=== PATIENT | female | born 1990 | race Caucasian/White ===

== ENCOUNTER 2023-10-15 22:38 | Observation (INO) ==
--- NOTE | 2023-10-15 23:16 | Emergency Department Note ---
History of Present Illness General Chief complaint: Shortness of Breath/Dyspnea Stated complaint: SOB,RAMON/TIGHTNESS OF CHEST,COUGH,VMITING Time Seen by Provider: 10/15/23 22:59 History of Present Illness This is a 33-year-old female presenting to the emergency department for evaluation of difficulty breathing. The patient has a history of asthma and has been sick for at least the last 2 or 3 days. The patient went to another ER [facility] where she was diagnosed with an asthma exacerbation and discharged home. She has seen her PCP this week as well and is currently on a Medrol Dosepak. Patient states that her symptoms are significant and she is not able to speak in full sentences because of her shortness of breath. She has never been admitted for asthma. No recent travel or OCP use. The patient rates her discomfort a 9/10. No fevers or chills. Home Medications Medication Instructions Recorded Confirmed Type azithromycin 250 mg tablet 250 mg PO UD 10/16/23 10/16/23 History benzonatate 100 mg capsule 100 mg PO TID PRN Cough 10/16/23 10/16/23 History cholecalciferol (vitamin D3) 25 1,000 unit PO DAILY 10/16/23 10/16/23 History mcg (1,000 unit) capsule methylprednisolone 4 mg tablets in 4 mg PO UD 10/16/23 10/16/23 History a dose pack Allergies Allergy/AdvReac Type Severity Reaction Status Date / Time No Known Allergies Allergy Unverified 11/12/14 00:44 Past Med/Surg History Medical History History of asthma Surgical History No significant past surgical history Social History Smoking Status: Never smoker Second Hand Exposure: No; Do You Dip or Chew Tobacco: No; Hx Substance Use: No Preferred Language: Telugu Communication Ability: Effective 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 Beliefs That Will Affect Care: None Current Living Situation: Family Other Information That Helps Us Care for You: No Feels Safe at Home: Yes Safety Concerns: Feels Safe At This Time Assistive Devices: None Review of Systems A total of 10 systems reviewed and were otherwise negative Physical Exam Vital Signs Vital Signs - 24 hr 10/16/23 03:00 10/16/23 03:00 10/16/23 03:11 Pulse Rate 112 H 123 H Pulse Rate from SpO2 Sensor 114 H Respiratory Rate 19 Blood Pressure 104/63 Blood Pressure Mean 74 Pulse Oximetry 93 10/16/23 03:30 10/16/23 03:50 10/16/23 03:50 Pulse Rate 121 H 127 H Pulse Rate from SpO2 Sensor 120 H 127 H Respiratory Rate 26 H 24 Blood Pressure 127/69 Blood Pressure Mean 98 Pulse Oximetry 94 93 VITALS: Vitals are noted on the nurse's note and reviewed by myself. Vital signs with tachycardia and hypoxia GENERAL: Well-developed, well-nourished, white female who appears ill on presentation. She is speaking in short sentences. HEAD: Normocephalic atraumatic. EARS: External ear normal. External auditory canals clear, tympanic membranes pearly almaraz without erythema or effusion bilaterally. EYES: Pupils equal round and reactive to light and accommodation. Conjunctivae without injection, sclerae without icterus. Extraocular movements intact. NOSE: Patent, turbinates without inflammation or discharge. MOUTH: Mucous membranes moist. Tonsils are not enlarged. Pharynx without erythema, blood, or exudate. Uvula midline. Airway patent. NECK: Supple without nuchal rigidity. No lymphadenopathy. No thyromegaly. Cervical spine is nontender. HEART: Tachycardic rate LUNGS: Diffuse wheezing and rhonchi with diminished breath sounds throughout ABDOMEN: Positive normal bowel sounds x 4. Soft, nontender, without masses or organomegaly. No guarding or rebound tenderness. MUSCULOSKELETAL: No muscle atrophy, erythema, or edema noted. Full range of motion in all extremities. Course Administered Medications Acetaminophen (Acetaminophen 325 Mg Tab) 650 mg PO Q4H PRN PRN Reason: Pain or Fever Stop: 11/15/23 04:15 Last Admin: 10/16/23 21:41 Dose: 650 mg Documented By: WARD Benzonatate (Benzonatate 100 Mg Capsule) 100 mg PO TID PRN PRN Reason: Cough Stop: 11/15/23 04:15 Last Admin: 10/16/23 21:41 Dose: 100 mg Documented By: WARD Doxycycline Hyclate (Doxycycline Hyclate 100 Mg Cap) 100 mg PO BID MERCEDES Stop: 10/23/23 08:59 Last Admin: 10/16/23 20:31 Dose: 100 mg Documented By: Admin: 10/16/23 08:15 Dose: 100 mg Documented By: NALLELY Enoxaparin Sodium (Enoxaparin Inj 40 Mg/0.4 Ml Syr) 40 mg SQ Q24H MERCEDES Stop: 11/15/23 08:59 Last Admin: 10/16/23 08:16 Dose: 40 mg Documented By: NALLELY Methylprednisolone 40 mg/ (Syringe) 0.64 mls @ 1.5 mls/min IV Q8H MERCEDES Stop: 11/15/23 07:59 Last Admin: 10/16/23 23:48 Dose: 1.5 mls/min Documented By: Admin: 10/16/23 15:22 Dose: 1.5 mls/min Documented By: Admin: 10/16/23 07:26 Dose: 1.5 mls/min Documented By: NALLELY Levalbuterol HCl (Levalbuterol 1.25 Mg/3 Ml Neb) 1.25 mg NEB Q4H PRN; Protocol PRN Reason: Shortness Of Breath Or Wheezing Stop: 11/15/23 04:15 Last Admin: 10/16/23 21:41 Dose: 1.25 mg Documented By: WARD Vitamin D (Cholecalciferol 25 Mcg (1000 Units) Tab) 25 mcg PO DAILY MERCEDES Stop: 11/15/23 08:59 Last Admin: 10/16/23 08:15 Dose: 25 mcg Documented By: NALLELY Discontinued Medications Albuterol (Albut/Ipratrop 3mg/0.5mg Neb 3 Ml Vial) 12 ml NEB ONE ONE; Protocol Stop: 10/15/23 23:09 Last Admin: 10/15/23 23:18 Dose: 12 ml Documented By: RIKKI Magnesium Sulfate/Dextrose (Magnesium Sulfate / D5w) 1 gm in 100 mls @ 600 mls/hr IV Q10M MERCEDES Stop: 10/15/23 23:28 Last Infusion: 10/15/23 23:55 Dose: Infused Documented By: Admin: 10/15/23 23:33 Dose: 600 mls/hr Documented By: Infusion: 10/15/23 23:33 Dose: Infused Documented By: Admin: 10/15/23 23:18 Dose: 600 mls/hr Documented By: RIKKI Acetaminophen (Ofirmev) 1,000 mg in 100 mls @ 400 mls/hr IV NOW STA Stop: 10/16/23 01:11 Last Infusion: 10/16/23 01:35 Dose: Infused Documented By: Admin: 10/16/23 01:09 Dose: 400 mls/hr Documented By: RIKKI Ioversol (Optiray 320 125ml) 115 ml IV ONCE ONE Stop: 10/16/23 00:12 Last Admin: 10/16/23 00:11 Dose: 115 ml Documented By: CATRINA Ipratropium [place] (Ipratropium [place] Neb Soln 0.02% 0.5mg/2.5ml Vial) 0.5 mg INH QIDR [facility] Stop: 11/15/23 06:59 Last Admin: 10/16/23 16:18 Dose: 0.5 mg Documented By: Admin: 10/16/23 11:56 Dose: 0.5 mg Documented By: Admin: 10/16/23 07:12 Dose: 0.5 mg Documented By: CONSTANTINE Levalbuterol HCl (Levalbuterol 1.25 Mg/3 Ml Neb) 1.25 mg NEB QIDR MERCEDES Stop: 11/15/23 06:59 Last Admin: 10/16/23 15:32 Dose: 1.25 mg Documented By: Admin: 10/16/23 15:31 Dose: 1.25 mg Documented By: Admin: 10/16/23 11:56 Dose: 1.25 mg Documented By: Admin: 10/16/23 07:12 Dose: 1.25 mg Documented By: CONSTANTINE Methylprednisolone (Methylprednisolone 125 Mg/2 Ml Vial) 125 mg IV NOW STA Stop: 10/15/23 23:09 Last Admin: 10/15/23 23:17 Dose: 125 mg Documented By: RIKKI Potassium Chloride (Potassium Chloride Crtab 20 Meq Tabcr) 40 meq PO NOW STA Stop: 10/16/23 04:27 Last Admin: 10/16/23 05:18 Dose: 40 meq Documented By: KOBI Medical Decision Making Differential Diagnosis Differential diagnosis: Etiologies such as infections, reactive airway disease, COPD, pneumonia, pleural effusion, pulmonary edema, ARDS, pneumothorax, CHF, cardiac ischemia, cardiac tamponade, dysrhythmia, anemia, pulmonary embolism, musculoskeletal, gastrointestinal process, as well as others were entertained. Laboratory Data 10/16/23 06:39 10/16/23 06:39 Lab Results 10/15/23 10/15/23 10/15/23 Range/Units 23:05 23:23 23:27 WBC 11.65 H (4.8-10.8) K/ul RBC 4.67 (4.20-5.40) M/uL Hgb 14.6 (12.0-16.0) g/dl Hct 43.5 (37.0-47.0) % MCV 93.1 (80.0-100.0) fL MCH 31.3 (25.0-34.0) pg MCHC 33.6 (32.0-36.0) g/dL RDW Std Deviation 43.3 (36.4-46.3) fL RDW Coeff of Mary Ellen 12.6 (11.5-14.5) % Plt Count 324 (130-400) K/uL MPV 10.3 (9.4-12.4) fL Immature Gran % (Auto) 0.3 % Neut % (Auto) 67.6 % Lymph % (Auto) 17.4 % Mcminn % (Auto) 4.5 % Eos % (Auto) 9.9 % Baso % (Auto) 0.3 % Neut # (Auto) 7.88 H (1.40-6.50) K/uL Lymph # (Auto) 2.03 (1.20-3.40) K/uL Mcminn # (Auto) 0.52 (0.11-0.59) K/uL Eos # (Auto) 1.15 H (0.00-0.50) K/uL Baso # (Auto) 0.04 (0.00-0.20) K/uL Immature Gran # (Auto) 0.03 (0.01-0.20) K/uL PT 11.5 (9.0-12.0) Seconds INR 1.1 (0.9-1.1) APTT 25 (21-31) Seconds PTT Ratio 0.9 VBG pH 7.32 L (7.36-7.41) VBG pCO2 54 H (38-50) mmHg VBG pO2 36 mmHg VBG HCO3 28 mmol/L VBG O2 Saturation < 60.0 % VBG Base Excess 0.7 mEq/L Sodium 141 (136-145) mmol/L Potassium 3.4 L (3.5-5.1) mmol/L Chloride 106 (98-107) mmol/L Carbon Dioxide 27 (21-32) mmol/L Anion Gap 8 (3-11) BUN 8 (6-23) mg/dl Creatinine 0.75 (0.6-1.2) mg/dl Est Cr Clr Drug Dosing 121.2 ml/min Est GFR ( Amer) 123.1 ml/min Est GFR (Non-Af Amer) 106.2 ml/min BUN/Creatinine Ratio 10.7 (10-20) Glucose 147 H (70-99(Fasting)) mg/dl Lactate 2.1 H* (0.4-2.0) mmol/L Calcium 9.3 (8.6-10.3) mg/dl Total Bilirubin 0.4 (0.2-1.0) mg/dl AST 15 (13-39) U/L ALT 15 (7-52) U/L Alkaline Phosphatase 66 (34-104) U/L Troponin I High Sens < 2.3 (0-14) pg/ml Total Protein 7.4 (6.0-8.3) gm/dl Albumin 4.5 (3.4-5.0) gm/dl Globulin 2.9 (2.5-4.0) gm/dl Albumin/Globulin Ratio 1.6 (0.9-2) Adenovirus (PCR) (NotDetected) B. pertussis DNA (PCR) (NotDetected) B.parapertussis DNA PCR (NotDetected) C. pneumoniae DNA (PCR) (NotDetected) Coronavirus OC43 (PCR) (NotDetected) Coronavirus HKU1 (PCR) (NotDetected) Coronavirus 229E (PCR) (NotDetected) SARS-CoV-2 (PCR) (NotDetected) Coronavirus NL63 (PCR) (NotDetected) Human Metapneumovir PCR (NotDetected) Influenza Type A (PCR) (NotDetected) Influenza Type B (PCR) (NotDetected) M. pneumoniae (PCR) (NotDetected) Parainfluenza 1 (PCR) (NotDetected) Parainfluenza 2 (PCR) (NotDetected) Parainfluenza 3 (PCR) (NotDetected) Parainfluenza 4 (PCR) (NotDetected) RSV (PCR) (NotDetected) Entero/Rhino (PCR) (NotDetected) 10/16/23 Range/Units 01:00 WBC (4.8-10.8) K/ul RBC (4.20-5.40) M/uL Hgb (12.0-16.0) g/dl Hct (37.0-47.0) % MCV (80.0-100.0) fL MCH (25.0-34.0) pg MCHC (32.0-36.0) g/dL RDW Std Deviation (36.4-46.3) fL RDW Coeff of Mary Ellen (11.5-14.5) % Plt Count (130-400) K/uL MPV (9.4-12.4) fL Immature Gran % (Auto) % Neut % (Auto) % Lymph % (Auto) % Mcminn % (Auto) % Eos % (Auto) % Baso % (Auto) % Neut # (Auto) (1.40-6.50) K/uL Lymph # (Auto) (1.20-3.40) K/uL Mcminn # (Auto) (0.11-0.59) K/uL Eos # (Auto) (0.00-0.50) K/uL Baso # (Auto) (0.00-0.20) K/uL Immature Gran # (Auto) (0.01-0.20) K/uL PT (9.0-12.0) Seconds INR (0.9-1.1) APTT (21-31) Seconds PTT Ratio VBG pH (7.36-7.41) VBG pCO2 (38-50) mmHg VBG pO2 mmHg VBG HCO3 mmol/L VBG O2 Saturation % VBG Base Excess mEq/L Sodium (136-145) mmol/L Potassium (3.5-5.1) mmol/L Chloride (98-107) mmol/L Carbon Dioxide (21-32) mmol/L Anion Gap (3-11) BUN (6-23) mg/dl Creatinine (0.6-1.2) mg/dl Est Cr Clr Drug Dosing ml/min Est GFR ( Amer) ml/min Est GFR (Non-Af Amer) ml/min BUN/Creatinine Ratio (10-20) Glucose (70-99(Fasting)) mg/dl Lactate (0.4-2.0) mmol/L Calcium (8.6-10.3) mg/dl Total Bilirubin (0.2-1.0) mg/dl AST (13-39) U/L ALT (7-52) U/L Alkaline Phosphatase (34-104) U/L Troponin I High Sens (0-14) pg/ml Total Protein (6.0-8.3) gm/dl Albumin (3.4-5.0) gm/dl Globulin (2.5-4.0) gm/dl Albumin/Globulin Ratio (0.9-2) Adenovirus (PCR) Not Detected (NotDetected) B. pertussis DNA (PCR) Not Detected (NotDetected) B.parapertussis DNA PCR Not Detected (NotDetected) C. pneumoniae DNA (PCR) Not Detected (NotDetected) Coronavirus OC43 (PCR) Not Detected (NotDetected) Coronavirus HKU1 (PCR) Not Detected (NotDetected) Coronavirus 229E (PCR) Not Detected (NotDetected) SARS-CoV-2 (PCR) Not Detected (NotDetected) Coronavirus NL63 (PCR) Not Detected (NotDetected) Human Metapneumovir PCR Not Detected (NotDetected) Influenza Type A (PCR) Not Detected (NotDetected) Influenza Type B (PCR) Not Detected (NotDetected) M. pneumoniae (PCR) Not Detected (NotDetected) Parainfluenza 1 (PCR) Not Detected (NotDetected) Parainfluenza 2 (PCR) Not Detected (NotDetected) Parainfluenza 3 (PCR) Not Detected (NotDetected) Parainfluenza 4 (PCR) Not Detected (NotDetected) RSV (PCR) Not Detected (NotDetected) Entero/Rhino (PCR) Not Detected (NotDetected) Imaging Data Radiologist's Impression: Chest CTA 10/15/23 23:08 Exam(s): CTA CHEST IV Amt: 115 cc's optiray 320 EXAM: CT Angiography Chest With Intravenous Contrast CLINICAL HISTORY: Reason for exam: SOB, tachy. TECHNIQUE: Axial computed tomographic angiography images of the chest with intravenous contrast. CTDI is 15.27 mGy and DLP is 500.02 mGy-cm. Automated exposure control was utilized for the study. A dose lowering technique was utilized adhering to the principles of ALARA. MIP reconstructed images were created and reviewed. COMPARISON: No relevant prior studies available. FINDINGS: Pulmonary arteries: Unremarkable. No pulmonary embolism. Aorta: No acute findings. No thoracic aortic aneurysm. Lungs: Unremarkable. No mass. No consolidation. Pleural space: Unremarkable. No significant effusion. No pneumothorax. Heart: Unremarkable. No cardiomegaly. No significant pericardial effusion. No evidence of RV dysfunction. Bones/joints: No acute fracture. No dislocation. Soft tissues: Unremarkable. Lymph nodes: Unremarkable. No enlarged lymph nodes. IMPRESSION: Normal chest CTA. No pulmonary embolism. Electronically signed by: Michael Moyer MD 10/16/23 00:56 AM [facility] Narrative Physical exam and history were performed. Nursing notes, EMR, and Medication List were personally reviewed. No social concerns were identified as barriers to patients care. Patient appears to have shortness of breath symptoms bring her to the ER. Patient was immediately seen on arrival to the ER as she is hypoxic, tachycardic, and tachypneic. She is answering questions in short sentences and appears in some respiratory distress. IV access was established x 2. She was hydrated with normal saline and given IV magnesium and IV Solu-Medrol. Hour- long DuoNeb was performed. Patient's blood work is as above and was reviewed. She does not have a significantly elevated white blood cell count, gross anemia, bandemia, or significant electrolyte imbalance. She is acidotic and retaining CO2 on VBG. Lactic initially is 2.1, and repeat was 2.0. Blood cultures are pending. transaminases are not diagnostic. She is not . Bio fire is negative. CT scan of the chest was ultimately performed and reviewed by myself and radiology showing no acute process. Patient is doing somewhat better after the hour-long DuoNeb and steroids. She continues to have some persistent tachycardia, and her O2 saturation is improved on 2 L. I did discuss the case with my attending, as well as with the on-call hospitalist team. The patient does not appear well for discharge home and escalation of care is felt to be necessary. Please see the hospitalist team dictation for further patient course, plan, and disposition. The chart was completed utilizing [employer] Speech Voice Recognition Software. Grammatical errors, random word insertions, pronoun errors, and incomplete sentences are an occasional consequence of this system due to software limitations, ambient noise, and hardware issues. Any formal questions or concerns about the content, text, or information contained within the body of this dictation should be directly addressed to the provider for clarification. . Impression & Plan Asthma exacerbation, Acute dyspnea Discharge Plan Visit Data Chief Complaint: Shortness of Breath/Dyspnea Stated Complaint: SOB,RAMON/TIGHTNESS OF CHEST,COUGH,VMITING ED Provider: Danielle Alegria ED Midlevel Provider: Jose Smyth Discharge Problem: Asthma exacerbation, Acute dyspnea Patient Disposition: Admitted As Inpatient Discharge Instructions Interventions: ED Discharge Assessment Last Done: 10/16/23 04:16
[2023-10-15] MEDS: methylPREDNISolone 125 MG/2 ML VIAL IV STA (23:17)
[2023-10-15] MEDS: ALBUT/IPRATROP 3MG/0.5MG NEB 3 ML VIAL NEB ONE (23:18)
[2023-10-15] MEDS: MAGNESIUM SULFATE / D5W 1 GM/100 ML BAG IV SCH (23:18)
[2023-10-15 23:28] LABS: Basophils # (auto) 0.04 K/uL (0.00-0.20); Basophils % (auto) 0.3 %; Eosinophils # (auto) 1.15 K/uL (0.00-0.50); Eosinophils % (auto) 9.9 %; Hematocrit (blood only) 43.5 % (37.0-47.0); Hemoglobin 14.6 g/dl (12.0-16.0); Immature Granulocytes # (auto) 0.03 K/uL (0.01-0.20); Immature Granulocytes % (auto) 0.3 %; Lymphocytes # (auto) 2.03 K/uL (1.20-3.40); Lymphocytes % (auto) 17.4 %; Mean Corpuscular Hemoglobin 31.3 pg (25.0-34.0); Mean Corpuscular Hgb Conc 33.6 g/dL (32.0-36.0); Mean Corpuscular Volume 93.1 fL (80.0-100.0); Mean Platelet Volume 10.3 fL (9.4-12.4); Monocytes # (auto) 0.52 K/uL (0.11-0.59); Monocytes % (auto) 4.5 %; Neutrophils # (auto) 7.88 K/uL (1.40-6.50); Neutrophils % (auto) 67.6 %; Platelet Count 324 K/uL (130-400); RDW Coefficient of Variation 12.6 % (11.5-14.5); RDW Standard Deviation 43.3 fL (36.4-46.3); Red Blood Count 4.67 M/uL (4.20-5.40); White Blood Count 11.65 K/ul (4.8-10.8)
[2023-10-15 23:33] LABS: Base Excess VBG 0.7 mEq/L; HCO3 VBG 28 mmol/L; Oxygen Saturation VBG < 60.0 %; PCO2 VBG 54 mmHg (38-50); PO2 VBG 36 mmHg; pH VBG 7.32 (7.36-7.41)
[2023-10-15 23:42] LABS: Alanine Aminotransferase 15 U/L (7-52); Albumin Globulin Ratio 1.6 (0.9-2); Albumin Level 4.5 gm/dl (3.4-5.0); Alkaline Phosphatase 66 U/L (34-104); Anion Gap 8 (3-11); Aspartate Aminotransferase 15 U/L (13-39); BUN Creatinine Ratio 10.7 (10-20); Bilirubin,Total 0.4 mg/dl (0.2-1.0); Blood Urea Nitrogen 8 mg/dl (6-23); Calcium 9.3 mg/dl (8.6-10.3); Carbon Dioxide 27 mmol/L (21-32); Chloride 106 mmol/L (98-107); Creatinine Clr Calc Pharmacy 121.2 ml/min; Est GFR (African American) 123.1 ml/min; Est GFR (Non-African American) 106.2 ml/min; Globulin 2.9 gm/dl (2.5-4.0); Glucose 147 mg/dl (70-99(Fasting)); Potassium 3.4 mmol/L (3.5-5.1); Sodium 141 mmol/L (136-145); Total Protein 7.4 gm/dl (6.0-8.3)
[2023-10-15 23:51] LABS: Troponin I High Sensitivity < 2.3 pg/ml (0-14)
[2023-10-16 00:07] LABS: INR 1.1 (0.9-1.1); Partial Thromboplastin Ratio 0.9; Partial Thromboplastin Time 25 Seconds (21-31); Prothrombin Time 11.5 Seconds (9.0-12.0)
[2023-10-16] MEDS: OPTIRAY 320 125ml IV ONE (00:11)
--- NOTE | 2023-10-16 00:57 | CT Scan Report ---
Exam(s): CTA CHEST IV Amt: 115 cc's optiray 320 EXAM: CT Angiography Chest With Intravenous Contrast CLINICAL HISTORY: Reason for exam: SOB, tachy. TECHNIQUE: Axial computed tomographic angiography images of the chest with intravenous contrast. CTDI is 15.27 mGy and DLP is 500.02 mGy-cm. Automated exposure control was utilized for the study. A dose lowering technique was utilized adhering to the principles of ALARA. MIP reconstructed images were created and reviewed. COMPARISON: No relevant prior studies available. FINDINGS: Pulmonary arteries: Unremarkable. No pulmonary embolism. Aorta: No acute findings. No thoracic aortic aneurysm. Lungs: Unremarkable. No mass. No consolidation. Pleural space: Unremarkable. No significant effusion. No pneumothorax. Heart: Unremarkable. No cardiomegaly. No significant pericardial effusion. No evidence of RV dysfunction. Bones/joints: No acute fracture. No dislocation. Soft tissues: Unremarkable. Lymph nodes: Unremarkable. No enlarged lymph nodes. IMPRESSION: Normal chest CTA. No pulmonary embolism. Electronically signed by: Michael Moyer MD 10/16/23 00:56 AM
[2023-10-16] MEDS: ACETAMINOPHEN 1,000 MG/100 ML VIAL IV STA (01:09)
[2023-10-16 02:11] LABS: Adenovirus PCR Not Detected (NotDetected); Bordetella parapertussis PCR Not Detected (NotDetected); Bordetella pertussis PCR Not Detected (NotDetected); Chlamydia pneumoniae PCR Not Detected (NotDetected); Coronavirus 229E PCR Not Detected (NotDetected); Coronavirus CoV-2 (COVID19)PCR Not Detected (NotDetected); Coronavirus HKU1 PCR Not Detected (NotDetected); Coronavirus NL63 PCR Not Detected (NotDetected); Coronavirus OC43PCR Not Detected (NotDetected); Human Metapneumovirus PCR Not Detected (NotDetected); Influenza A PCR Not Detected (NotDetected); Influenza B PCR Not Detected (NotDetected); Mycoplasma pneumoniae PCR Not Detected (NotDetected); Parainfluenza Virus 1 PCR Not Detected (NotDetected); Parainfluenza Virus 2 PCR Not Detected (NotDetected); Parainfluenza Virus 3 PCR Not Detected (NotDetected); Parainfluenza Virus 4 PCR Not Detected (NotDetected); Respiratory Syncytial VirusPCR Not Detected (NotDetected); Rhinovirus/Enterovirus PCR Not Detected (NotDetected)
--- NOTE | 2023-10-16 04:06 | History & Physical Report ---
Date of Service October 16, 2023 Assessment & Plan (1) Asthma exacerbation: Plan: 33-year-old female with past med history significant for asthma comes with shortness of breath and found to be in asthma exacerbation and failed outpatient treatment. Patient states since last Wednesday she is feeling short of breath and coughing which is getting progressively worsened. She she was seen in acute care on Wednesday and was prescribed azithromycin. 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 On Wednesday she was not feeling well and she was given a steroid shot and prescribed Medrol Dosepak in the ENT office and was sent to [facility].Patient states from [facility] she was discharged back home on inhalers. On the way home she was nauseous and vomited. And she started taking Medrol Dosepak on morning. She seemed to feel better but by the evening shortness of breath and cough got worse and was progressive getting worse and not improving so she came to [facility]. When she came in she was tachypneic, tachycardia and was saturating 87% room air. After 1 hour of neb treatments and oxygen supplementation she seems doing okay. She states to having some chest tightness. Bringing some phlegm while coughing. Having some headaches. No blurred vision. No sore throat. Appetite is okay. No abdominal pain. Normal bowel and bladder movements. Currently resting comfortably and speaking in full sentences. Asthma exacerbation Failed outpatient treatment Respiratory bio fire negative CTA chest unremarkable Will continue IV Solu-Medrol 40 mg 3 times daily, nebs [id number] and as needed Will hold azithromycin as QTc is prolonged Will place on p.o. Doxy Will monitor for response Chest tightness Mostly from above Will follow serial enzymes Prolonged QTc Avoid QTc prolonging drugs Follow repeat EKG DVT prophylaxis Lovenox Disposition Med/tele Full code History of Present Illness Chief Complaint: Shortness of breath Primary Care Provider: Giovanna Hyatt PA-C 33-year-old female with past med history significant for asthma comes with shortness of breath and found to be in asthma exacerbation and failed outpatient treatment. Patient states since last Wednesday she is feeling short of breath and coughing which is getting progressively worsened. She she was seen in acute care on Wednesday and was prescribed azithromycin. 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 On Wednesday she was not feeling well and she was given a steroid shot and prescribed Medrol Dosepak in the ENT office and was sent to [facility].Patient states from ER she was discharged back home on inhalers. On the way home she was nauseous and vomited. And she started taking Medrol Dosepak on morning. She seemed to feel better but by the evening shortness of breath and cough got worse and was progressive getting worse and not improving so she came to [facility]. When she came in she was tachypneic, tachycardia and was saturating 87% room air. After 1 hour of neb treatments and oxygen supplementation she seems doing okay. She states to having some chest tightness. Bringing some phlegm while coughing. Having some headaches. No blurred vision. No sore throat. Appetite is okay. No abdominal pain. Normal bowel and bladder movements. Currently resting comfortably and speaking in full sentences. Past medical history as mentioned above. Past surgical history. None as per patient Social history. She vapes daily. Alcohol occasional. No drug use. Family history. . Maternal grandfather had lung cancer. Paternal grandmother had cardiac stents,maternal grandmother had hypertension Allergies Allergy/AdvReac Type Severity Reaction Status Date / Time No Known Allergies Allergy Unverified 11/12/14 00:44 Home Medications Medication Instructions Recorded Confirmed Type azithromycin 250 mg tablet 250 mg PO UD 10/16/23 10/16/23 History benzonatate 100 mg capsule 100 mg PO TID PRN Cough 10/16/23 10/16/23 History cholecalciferol (vitamin D3) 25 1,000 unit PO DAILY 10/16/23 10/16/23 History mcg (1,000 unit) capsule methylprednisolone 4 mg tablets in 4 mg PO UD 10/16/23 10/16/23 History a dose pack Past Med/Surg History Medical History History of asthma Surgical History No significant past surgical history Social History Smoking Status: Never smoker Preferred Language: Italian Feels Safe at Home: Yes Review of Systems Review of Systems: All systems reviewed & are unremarkable except as noted in HPI & below Physical Exam Physical Exam: General- Not in distress. Head- atraumatic Eyes- PERRL. ENT- oropharynx clear Neck- supple, no JVD. Lungs- clear to auscultation mild b/l wheezing, no crackles. Heart- regular rhythm;Tachycardia, no murmur, no gallop. Abdomen- normal bowel sounds, soft, nontender, no distension. Extremities- no pretibial edema, no erythema seen. Neuro- alert, oriented PERRL, no facial palsy; no dysarthria; Results & Data Results & Data Vital Signs (Past 12 Hours) Vital Signs Temp Pulse Resp BP Pulse Ox O2 Del Method O2 Flow Rate 10/16/23 03:11 123 H 10/16/23 03:00 112 H 19 93 10/16/23 03:00 104/63 10/16/23 02:30 125 H 34 H 94 10/16/23 02:00 101/57 L 10/16/23 02:00 130 H 21 94 10/16/23 01:30 131 H 22 101/57 L 94 10/16/23 01:00 111/69 10/16/23 01:00 142 H 18 93 10/16/23 00:55 108/62 10/16/23 00:55 139 H 18 95 10/16/23 00:39 94 Nasal Cannula 2 10/16/23 00:30 96 10/16/23 00:12 93 10/15/23 23:30 133 H 26 H 93 10/15/23 23:00 125 H 33 H 92 10/15/23 22:55 113 H 21 94 10/15/23 22:55 105/73 10/15/23 22:55 124 H 10/15/23 22:45 36.8 C 130 H 26 H 150/97 H 87 L Room Air Diagnostic Findings Laboratory Results WBC 11.65 K/ul (4.8-10.8) H 10/15/23 23:05 RBC 4.67 M/uL (4.20-5.40) 10/15/23 23:05 Hgb 14.6 g/dl (12.0-16.0) 10/15/23 23:05 Hct 43.5 % (37.0-47.0) 10/15/23 23:05 MCV 93.1 fL (80.0-100.0) 10/15/23 23: MCH 31.3 pg (25.0-34.0) 10/15/23 23:05 MCHC 33.6 g/dL (32.0-36.0) 10/15/23 23: RDW Std Deviation 43.3 fL (36.4-46.3) 10/15/23 23: RDW Coeff of Mary Ellen 12.6 % (11.5-14.5) 10/15/23 23: Plt Count 324 K/uL (130-400) 10/15/23 23:05 MPV 10.3 fL (9.4-12.4) 10/15/23 23: Immature Gran % (Auto) 0.3 % 10/15/23 23: Neut % (Auto) 67.6 % 10/15/23 23: Lymph % (Auto) 17.4 % 10/15/23 23: [place] % (Auto) 4.5 % 10/15/23: Eos % (Auto) 9.9 % 10/15/23 23:05 Baso % (Auto) 0.3 % 10/15/23 23:05 Neut # (Auto) 7.88 K/uL (1.40-6.50) H 10/15/23 23:05 Lymph # (Auto) 2.03 K/uL (1.20-3.40) 10/15/23 23:05 [place] # (Auto) 0.52 K/uL (0.11-0.59) 10/15/23 23:05 Eos # (Auto) 1.15 K/uL (0.00-0.50) H 10/15/23 23:05 Baso # (Auto) 0.04 K/uL (0.00-0.20) 10/15/23 23:05 Immature Gran # (Auto) 0.03 K/uL (0.01-0.20) 10/15/23 23: PT 11.5 Seconds (9.0-12.0) 10/15/23: INR 1.1 (0.9-1.1) 10/15/23: APTT 25 Seconds (21-31) 10/15/23: PTT Ratio 0.9 03/15/24 23:27 VBG pH 7.32 (7.36-7.41) L 10/15/23 23:23 VBG pCO2 54 mmHg (38-50) H 10/15/23 23:23 VBG pO2 36 mmHg 10/15/23 23:23 VBG HCO3 28 mmol/L 10/15/23 23:23 VBG O2 Saturation < 60.0 % 10/15/23 23:23 VBG Base Excess 0.7 mEq/L 10/15/23 23:23 Sodium 141 mmol/L (136-145) 10/15/23 23:05 Potassium 3.4 mmol/L (3.5-5.1) L 10/15/23 23:05 Chloride 106 mmol/L (98-107) 10/15/23 23:05 Carbon Dioxide 27 mmol/L (21-32) 10/15/23 23:05 Anion Gap 8 (3-11) 10/15/23 23:05 BUN 8 mg/dl (6-23) 10/15/23 23:05 Creatinine 0.75 mg/dl (0.6-1.2) 10/15/23 23:05 Est Cr Clr Drug Dosing 121.2 ml/min 10/15/23 23:05 Est GFR ( Amer) 123.1 ml/min 10/15/23 23:05 Est GFR (Non-Af Amer) 106.2 ml/min 10/15/23 23:05 BUN/Creatinine Ratio 10.7 (10-20) 10/15/23 23:05 Glucose 147 mg/dl (70-99(Fasting)) H 10/15/23 23:05 Lactate 2.0 mmol/L (0.4-2.0) 10/16/23 Unknown Calcium 9.3 mg/dl (8.6-10.3) 10/15/23 23:05 Total Bilirubin 0.4 mg/dl (0.2-1.0) 10/15/23 23:05 AST 15 U/L (13-39) 10/15/23 23:05 ALT 15 U/L (7-52) 10/15/23 23:05 Alkaline Phosphatase 66 U/L (34-104) 10/15/23 23:05 Troponin I High Sens < 2.3 pg/ml (0-14) 10/15/23 23:05 Total Protein 7.4 gm/dl (6.0-8.3) 10/15/23 23:05 Albumin 4.5 gm/dl (3.4-5.0) 10/15/23 23:05 Globulin 2.9 gm/dl (2.5-4.0) 10/15/23 23:05 Albumin/Globulin Ratio 1.6 (0.9-2) 10/15/23 23:05 Adenovirus (PCR) Not Detected (NotDetected) 10/16/23 01:00 B. pertussis DNA (PCR) Not Detected (NotDetected) 10/16/23 01:00 B.parapertussis DNA PCR Not Detected (NotDetected) 10/16/23 01:00 C. pneumoniae DNA (PCR) Not Detected (NotDetected) 10/16/23 01:00 Coronavirus OC43 (PCR) Not Detected (NotDetected) 10/16/23 01:00 Coronavirus HKU1 (PCR) Not Detected (NotDetected) 10/16/23 01:00 Coronavirus 229E (PCR) Not Detected (NotDetected) 10/16/23 01:00 SARS-CoV-2 (PCR) Not Detected (NotDetected) 10/16/23 01:00 Coronavirus NL63 (PCR) Not Detected (NotDetected) 10/16/23 01:00 Human Metapneumovir PCR Not Detected (NotDetected) 10/16/23 01:00 Influenza Type A (PCR) Not Detected (NotDetected) 10/16/23 01:00 Influenza Type B (PCR) Not Detected (NotDetected) 10/16/23 01:00 M. pneumoniae (PCR) Not Detected (NotDetected) 10/16/23 01:00 Parainfluenza 1 (PCR) Not Detected (NotDetected) 10/16/23 01:00 Parainfluenza 2 (PCR) Not Detected (NotDetected) 10/16/23 01:00 Parainfluenza 3 (PCR) Not Detected (NotDetected) 10/16/23 01:00 Parainfluenza 4 (PCR) Not Detected (NotDetected) 10/16/23 01:00 RSV (PCR) Not Detected (NotDetected) 10/16/23 01:00 Entero/Rhino (PCR) Not Detected (NotDetected) 10/16/23 01:00 Impressions Chest CTA 10/15/23 23:08 Exam(s): CTA CHEST IV Amt: 115 cc's optiray 320 EXAM: CT Angiography Chest With Intravenous Contrast CLINICAL HISTORY: Reason for exam: SOB, tachy. TECHNIQUE: Axial computed tomographic angiography images of the chest with intravenous contrast. CTDI is 15.27 mGy and DLP is 500.02 mGy-cm. Automated exposure control was utilized for the study. A dose lowering technique was utilized adhering to the principles of ALARA. MIP reconstructed images were created and reviewed. COMPARISON: No relevant prior studies available. FINDINGS: Pulmonary arteries: Unremarkable. No pulmonary embolism. Aorta: No acute findings. No thoracic aortic aneurysm. Lungs: Unremarkable. No mass. No consolidation. Pleural space: Unremarkable. No significant effusion. No pneumothorax. Heart: Unremarkable. No cardiomegaly. No significant pericardial effusion. No evidence of RV dysfunction. Bones/joints: No acute fracture. No dislocation. Soft tissues: Unremarkable. Lymph nodes: Unremarkable. No enlarged lymph nodes. IMPRESSION: Normal chest CTA. No pulmonary embolism. Electronically signed by: Michael Moyer MD 10/16/23 00:56 AM ECG Additional Comments: ECG. Sinus tachycardia rate of 138. Nonspecific ST and T wave abnormality. T wave inversion lateral leads. QTc 560 Code Status & VTE Plan VTE Prophylaxis Plan VTE Prophylaxis will be ordered: Yes
[2023-10-16] MEDS ORDERED: NITROGLYCERIN SL 0.4 MG/TAB TAB SL PRN (04:16)
[2023-10-16] MEDS ORDERED: AZITHROMYCIN 250 MG TAB PO SCH (04:16)
[2023-10-16] MEDS ORDERED: POLYETHYLENE (MIRALAX) 17 GM PACK PO PRN (04:16)
[2023-10-16] MEDS: POTASSIUM CHLORIDE CRTAB 20 MEQ TABCR PO STA (05:18)
[2023-10-16 07:05] LABS: Hemoglobin 13.7 g/dl (12.0-16.0); Mean Corpuscular Hemoglobin 31.8 pg (25.0-34.0); Mean Corpuscular Hgb Conc 35.1 g/dL (32.0-36.0); Mean Corpuscular Volume 90.5 fL (80.0-100.0); Mean Platelet Volume 10.4 fL (9.4-12.4); Platelet Count 287 K/uL (130-400); RDW Coefficient of Variation 12.4 % (11.5-14.5); RDW Standard Deviation 41.1 fL (36.4-46.3); Red Blood Count 4.31 M/uL (4.20-5.40); White Blood Count 7.24 K/ul (4.8-10.8)
[2023-10-16] MEDS: LEVALBUTEROL 1.25 MG/3 ML NEB NEB SCH (07:12)
[2023-10-16] MEDS: IPRATROPIUM BROMIDE NEB SOLN 0.02% 0.5MG/2.5ML VIAL INH SCH (07:12)
[2023-10-16 07:24] LABS: Anion Gap 7 (3-11); BUN Creatinine Ratio 11.4 (10-20); Blood Urea Nitrogen 8 mg/dl (6-23); Carbon Dioxide 25 mmol/L (21-32); Chloride 105 mmol/L (98-107); Creatinine Clr Calc Pharmacy 129.9 ml/min; Est GFR (African American) 133.8 ml/min; Est GFR (Non-African American) 115.5 ml/min; Glucose 175 mg/dl (70-99(Fasting)); Magnesium 2.2 mg/dl (1.7-2.4); Potassium 4.3 mmol/L (3.5-5.1); Sodium 137 mmol/L (136-145)
[2023-10-16] MEDS: methylPREDNISolone 40 MG in SYRINGE 0 ML IV SCH (07:26)
[2023-10-16 07:35] LABS: Troponin I High Sensitivity < 2.3 pg/ml (0-14)
[2023-10-16 07:53] LABS: Basophils # (auto) 0.02 K/uL (0.00-0.20); Basophils % (auto) 0.3 %; Eosinophils # (auto) 0.03 K/uL (0.00-0.50); Eosinophils % (auto) 0.4 %; Immature Granulocytes # (auto) 0.02 K/uL (0.01-0.20); Immature Granulocytes % (auto) 0.3 %; Lymphocytes # (auto) 0.53 K/uL (1.20-3.40); Lymphocytes % (auto) 7.3 %; Monocytes # (auto) 0.07 K/uL (0.11-0.59); Neutrophils # (auto) 6.57 K/uL (1.40-6.50); Neutrophils % (auto) 90.7 %; RBC Morphology Unremarkable
[2023-10-16] MEDS: CHOLECALCIFEROL 25 MCG (1000 UNITS) TAB PO SCH (08:15)
[2023-10-16] MEDS: DOXYCYCLINE HYCLATE 100 MG CAP PO SCH (08:15)
[2023-10-16] MEDS: ENOXAPARIN INJ 40 MG/0.4 ML SYR SQ SCH (08:16)
[2023-10-16] MEDS ORDERED: XOPENEX/ATROVENT 1.25mg/0.5MG NEB COMBO NEB SCH (09:00)
[2023-10-16 12:54] LABS: Pregnancy Test, Urine Negative (Negative)
--- NOTE | 2023-10-16 13:33 | Electrocardiogram Report ---
Test Reason : Blood Pressure : / mmHG Vent. Rate : 138 BPM Atrial Rate : 138 BPM P-R Int : 112 ms QRS Dur : 082 ms QT Int : 370 ms P-R-T Axes : 066 077 054 degrees QTc Int : 560 ms Sinus tachycardia Nonspecific ST and T wave abnormality Abnormal ECG When compared with ECG of 09-FEB-2016 19:45, Vent. rate has increased BY 47 BPM T wave inversion now evident in Lateral leads Confirmed by Mauro Singh ([id number]) on 10/16/2023 1:32:37 PM Referred By: REFERRED SELF Confirmed By:Mauro Singh
[2023-10-16] MEDS: BENZONATATE 100 MG CAPSULE PO PRN (21:41)
[2023-10-16] MEDS: ACETAMINOPHEN 325 MG TAB PO PRN (21:41)
[2023-10-16] MEDS: LEVALBUTEROL 1.25 MG/3 ML NEB NEB PRN (21:41)
[2023-10-17 07:08] LABS: Hematocrit (blood only) 40.7 % (37.0-47.0); Mean Corpuscular Hemoglobin 31.5 pg (25.0-34.0); Mean Corpuscular Hgb Conc 34.4 g/dL (32.0-36.0); Mean Corpuscular Volume 91.7 fL (80.0-100.0); Mean Platelet Volume 10.5 fL (9.4-12.4); Platelet Count 330 K/uL (130-400); RDW Coefficient of Variation 12.3 % (11.5-14.5); RDW Standard Deviation 41.2 fL (36.4-46.3); Red Blood Count 4.44 M/uL (4.20-5.40); White Blood Count 9.46 K/ul (4.8-10.8)
[2023-10-17 07:27] LABS: Calcium 9.2 mg/dl (8.6-10.3); Creatinine Clr Calc Pharmacy 149.6 ml/min; Est GFR (Non-African American) 120.8 ml/min; Phosphorus 3.8 mg/dl (2.5-4.9); Potassium 4.3 mmol/L (3.5-5.1)
--- NOTE | 2023-10-17 09:37 | Hospitalist Progress Note ---
Date of Service October 17, 2023 Assessment & Plan (1) Asthma exacerbation: Plan: 33- yo F with hx of asthma comes with shortness of breath and found to be in asthma exacerbation and failed outpatient treatment. Patient states since last Wednesday she is feeling short of breath and coughing which is getting progressively worsened. She she was seen in acute care on Wednesday and was prescribed azithromycin. 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 On Wednesday she was not feeling well and she was given a steroid shot and prescribed Medrol Dosepak in the ENT office and was sent to [facility].Patient states from [facility] she was discharged back home on inhalers. On the way home she was nauseous and vomited. And she started taking Medrol Dosepak on morning. She seemed to feel better but by the evening shortness of breath and cough got worse and was progressive getting worse and not improving so she came to [facility]. When she came in she was tachypneic, tachycardic and was saturating 87% room air. After 1 hour of neb treatments and oxygen supplementation she seems doing okay. She states to having some chest tightness. Bringing some phlegm while coughing. Having some headaches. No blurred vision. No sore throat. Appetite is okay. No abdominal pain. Normal bowel and bladder movements. Currently resting comfortably and speaking in full sentences. Asthma exacerbation Failed outpatient treatment Respiratory bio fire negative CTA chest unremarkable continued IV Solu-Medrol 40 mg 3 times daily, nebs while inpt stopped azithromycin as QTc is prolonged started on p.o. Doxy Will monitor for response Chest tightness Mostly from above serial enzymes negative - resolved w/ breathing treatment Prolonged QTc Avoid QTc prolonging drugs Follow repeat EKG DVT prophylaxis Lovenox Disposition Med/tele - plan to DC home if she cont. to feel today Full code Admission and Anticipated Discharge Date Admission Date: October 16, 2023 Subjective Pt seen in follow up of asthma exacerbation Currently sitting up in bed in [facility], she is breathing comfortably on RA at this moment but says she had chest tightness early AM and last night resolved with breathing treatment No fever, chills, no abd. pain, nausea vomiting, no palpitations, no dizziness She would like to be discharged home Review of Systems Review of Systems: All systems reviewed & are unremarkable except as noted in Subjective Physical Exam Physical Exam: General- WD/WN young F in NAD Head- atraumatic Eyes- PERRL. Neck- supple, no JVD. Lungs- + b/l wheezing, no crackles. Heart- rrr, no murmur, no gallop. Abdomen- normal bowel sounds, soft, nontender, no distension. Extremities- no pretibial edema, no erythema seen. moves extremities w/o any difficulty Neuro- alert, oriented PERRL, no facial palsy; no dysarthria; moves extremities Results & Data Results & Data Vital Signs (Past 12 Hours) Vital Signs Temp Pulse Pulse Resp BP Pulse Ox O2 Del Method 10/17/23 07:54 36.8 C 67 18 106/69 94 Room Air 10/17/23 05:14 89 20 92 Room Air 10/17/23 03:29 36.6 C 90 20 98/63 L 94 Room Air 10/16/23 23:33 115 H 10/16/23 22:39 Room Air 10/16/23 22:36 36.7 C 103 H 18 128/78 93 Room Air 10/16/23 22:06 109/74 10/16/23 21:37 107 H 26 H 98/70 L 91 Room Air Laboratory Results 10/17/23 10/16/23 10/16/23 Range/Units 06:29 13:09 12:44 WBC 9.46 (4.8-10.8) K/ul RBC 4.44 (4.20-5.40) M/uL Hgb 14.0 (12.0-16.0) g/dl Hct 40.7 (37.0-47.0) % MCV 91.7 (80.0-100.0) fL MCH 31.5 (25.0-34.0) pg MCHC 34.4 (32.0-36.0) g/dL RDW Std Deviation 41.2 (36.4-46.3) fL RDW Coeff of Mary Ellen 12.3 (11.5-14.5) % Plt Count 330 (130-400) K/uL MPV 10.5 (9.4-12.4) fL Sodium 138 (136-145) mmol/L Potassium 4.3 (3.5-5.1) mmol/L Chloride 106 (98-107) mmol/L Carbon Dioxide 24 (21-32) mmol/L Anion Gap 8 (3-11) BUN 11 (6-23) mg/dl Creatinine 0.61 (0.6-1.2) mg/dl Est Cr Clr Drug Dosing 149.6 ml/min Est GFR ( Amer) 140.0 ml/min Est GFR (Non-Af Amer) 120.8 ml/min BUN/Creatinine Ratio 18.0 (10-20) Glucose 136 H (70-99(Fasting)) mg/dl Calcium 9.2 (8.6-10.3) mg/dl Phosphorus 3.8 (2.5-4.9) mg/dl Magnesium 2.0 (1.7-2.4) mg/dl Troponin I High Sens < 2.3 (0-14) pg/ml Urine Test Negative (Negative) Medications Administered Current Inpatient Medications Acetaminophen (Acetaminophen 325 Mg Tab) 650 mg PO Q4H PRN PRN Reason: Pain or Fever Stop: 11/15/23 04:15 Last Admin: 10/17/23 06:09 Dose: 650 mg Benzonatate (Benzonatate 100 Mg Capsule) 100 mg PO TID PRN PRN Reason: Cough Stop: 11/15/23 04:15 Last Admin: 10/16/23 21:41 Dose: 100 mg Doxycycline Hyclate (Doxycycline Hyclate 100 Mg Cap) 100 mg PO BID [facility] Stop: 10/23/23 08:59 Last Admin: 10/16/23 20:31 Dose: 100 mg Enoxaparin Sodium (Enoxaparin Inj 40 Mg/0.4 Ml Syr) 40 mg SQ Q24H [facility] Stop: 11/15/23 08:59 Last Admin: 10/16/23 08:16 Dose: 40 mg Methylprednisolone 40 mg/ (Syringe) 0.64 mls @ 1.5 mls/min IV Q8H [facility] Stop: 11/15/23 07:59 Last Admin: 10/16/23 23:48 Dose: 1.5 mls/min Levalbuterol HCl (Levalbuterol 1.25 Mg/3 Ml Neb) 1.25 mg NEB Q4H PRN; Protocol PRN Reason: Shortness Of Breath Or Wheezing Stop: 11/15/23 04:15 Last Admin: 10/17/23 05:13 Dose: 1.25 mg Nitroglycerin (Nitroglycerin Sl 0.4 Mg/Tab Tab) 0.4 mg SL Q5M PRN PRN Reason: Chest Pain Stop: 11/15/23 04:15 Polyethylene Glycol (Polyethylene (Miralax) 17 Gm Pack) 17 gm PO DAILY PRN PRN Reason: Constipation Stop: 11/15/23 04:15 Vitamin D (Cholecalciferol 25 Mcg (1000 Units) Tab) 25 mcg PO DAILY [facility] Stop: 11/15/23 08:59 Last Admin: 10/16/23 08:15 Dose: 25 mcg
--- NOTE | 2023-10-17 10:36 | Discharge Summary ---
Date of Service October 17, 2023 Admission HPI Per Admitting Provider 33-year-old female with past med history significant for asthma comes with shortness of breath and found to be in asthma exacerbation and failed outpatient treatment. Patient states since last Wednesday she is feeling short of breath and coughing which is getting progressively worsened. She she was seen in acute care on Wednesday and was prescribed azithromycin. 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 On Wednesday she was not feeling well and she was given a steroid shot and prescribed Medrol Dosepak in the ENT office and was sent to [facility].Patient states from ER she was discharged back home on inhalers. On the way home she was nauseous and vomited. And she started taking Medrol Dosepak on morning. She seemed to feel better but by the evening shortness of breath and cough got worse and was progressive getting worse and not improving so she came to [facility]. When she came in she was tachypneic, tachycardia and was saturating 87% room air. After 1 hour of neb treatments and oxygen supplementation she seems doing okay. She states to having some chest tightness. Bringing some phlegm while coughing. Having some headaches. No blurred vision. No sore throat. Appetite is okay. No abdominal pain. Normal bowel and bladder movements. Currently resting comfortably and speaking in full sentences. Past medical history as mentioned above. Past surgical history. None as per patient Social history. She vapes daily. Alcohol occasional. No drug use. Family history. . Maternal grandfather had lung cancer. Paternal grandmother had cardiac stents,maternal grandmother had hypertension Admission Exam Per Admitting Provider General- Not in distress. Head- atraumatic Eyes- PERRL. ENT- oropharynx clear Neck- supple, no JVD. Lungs- clear to auscultation mild b/l wheezing, no crackles. Heart- regular rhythm;Tachycardia, no murmur, no gallop. Abdomen- normal bowel sounds, soft, nontender, no distension. Extremities- no pretibial edema, no erythema seen. Neuro- alert, oriented PERRL, no facial palsy; no dysarthria; Principal Diagnosis Asthma exacerbation Discharge Exam General- WD/WN young F in NAD Head- atraumatic Eyes- PERRL. Neck- supple, no JVD. Lungs- + b/l wheezing, no crackles. Heart- rrr, no murmur, no gallop. Abdomen- normal bowel sounds, soft, nontender, no distension. Extremities- no pretibial edema, no erythema seen. moves extremities w/o any difficulty Neuro- alert, oriented PERRL, no facial palsy; no dysarthria; moves extremities Discharge Data Allergies Allergy/AdvReac Type Severity Reaction Status Date / Time No Known Allergies Allergy Unverified 11/12/14 00:44 Consultations 10/16/23 01:52 ED Decision to Admit Stat Ordered Studies 10/15/23 23:08 CT angio chest PE protocol Stat FINDINGS: Pulmonary arteries: Unremarkable. No pulmonary embolism. Aorta: No acute findings. No thoracic aortic aneurysm. Lungs: Unremarkable. No mass. No consolidation. Pleural space: Unremarkable. No significant effusion. No pneumothorax. Heart: Unremarkable. No cardiomegaly. No significant pericardial effusion. No evidence of RV dysfunction. Bones/joints: No acute fracture. No dislocation. Soft tissues: Unremarkable. Lymph nodes: Unremarkable. No enlarged lymph nodes. IMPRESSION: Normal chest CTA. No pulmonary embolism. Hospital Course (1) Asthma exacerbation: 33- yo F with hx of asthma comes with shortness of breath and found to be in asthma exacerbation and failed outpatient treatment. Patient states since last Wednesday she is feeling short of breath and coughing which is getting progressively worsened. She she was seen in acute care on Wednesday and was prescribed azithromycin. 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 On Wednesday she was not feeling well and she was given a steroid shot and prescribed Medrol Dosepak in the ENT office and was sent to [facility].Patient states from [facility] she was discharged back home on inhalers. On the way home she was nauseous and vomited. And she started taking Medrol Dosepak on morning. She seemed to feel better but by the evening shortness of breath and cough got worse and was progressive getting worse and not improving so she came to [facility]. When she came in she was tachypneic, tachycardic and was saturating 87% room air. After 1 hour of neb treatments and oxygen supplementation she seems doing okay. She states to having some chest tightness. Bringing some phlegm while coughing. Having some headaches. No blurred vision. No sore throat. Appetite is okay. No abdominal pain. Normal bowel and bladder movements. Currently resting comfortably and speaking in full sentences. Asthma exacerbation Failed outpatient treatment Respiratory bio fire negative CTA chest unremarkable continued IV Solu-Medrol 40 mg 3 times daily, nebs while inpt -> DC on prednisone, inh/ neb prn, and doxy stopped azithromycin as QTc is prolonged started on p.o. Doxy Will monitor for response Pt is breathing comfortably on RA however still requires prn breathing treatments. She would like to be discharged with nebs (she has machine at home) Chest tightness Mostly from above serial enzymes negative - resolved w/ breathing treatment Prolonged QTc Avoid QTc prolonging drugs Follow repeat EKG Total Time Total Time Spent Total Time Spent (In Minutes): 40 Discharge Plan Discharge Items Patient Disposition: Home - Self-Care Reason For Visit: ASTHMA EXACERBATION Discharge Diagnosis: Asthma exacerbation Activity: Per Instructions section Non-emergency contact: Primary Care Provider Call non-emergency contact if: you have any medication questions and your symptoms worsen Follow-up/Referrals: Giovanna Hyatt PA-C [Primary Care Provider] - Diet: Regular Addtl Attending Provider Instructions: Follow up with your primary care doctor within 1 week. 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 Take prednisone, doxycycline as prescribed. Use albuterol inhaler / or nebulizer as needed as prescribed. Pending Studies at Discharge: Yes Studies:: final results of blood cultx Stand-Alone Forms: My [facility] [employer], Smoking Cessation Medications and DC Order Prescriptions: New doxycycline hyclate 100 mg Capsule 100 mg PO BID 4 Days Qty: 8 0RF prednisone 50 mg tablet 50 mg PO DAILY 4 Days Qty: 4 0RF albuterol sulfate 90 mcg/actuation HFA aerosol inhaler 2 inh inhalation Q4H PRN (Reason: shortness of breath or wheezing) Qty: 8.5 0RF levalbuterol HCl 1.25 mg/3 mL Solution For Nebulization 1.25 mg NEB Q4H PRN (Reason: shortness of breath or wheezing) Qty: 72 0RF Continued benzonatate 100 mg capsule 100 mg PO TID PRN (Reason: Cough) cholecalciferol (vitamin D3) 25 mcg (1,000 unit) capsule 1,000 unit PO DAILY Discontinued azithromycin 250 mg tablet 250 mg PO UD Rx Instructions: ordered 10/12/23 take for 4 days after starting methylprednisolone 4 mg tablets,dose pack 4 mg PO UD Rx Instructions: 10/13/23 take for 6 days...take 6 tablets on day 1 and decrease by 1 tablet every day Discharge Orders: Discharge Order (Routine); Ordered 10/17/23 Ordered By: Maxi Lacey Admission Data Admit Date/Time: 10/16/23 03:55 Attending Provider: Maxi Lacey Admit Provider: Julian Sy Primary Care Provider: Giovanna Hyatt Other Providers: Julian Sy
--- NOTE | 2023-10-17 12:19 | Electrocardiogram Report ---
Test Reason : Blood Pressure : / mmHG Vent. Rate : 084 BPM Atrial Rate : 084 BPM P-R Int : 138 ms QRS Dur : 084 ms QT Int : 390 ms P-R-T Axes : 079 055 034 degrees QTc Int : 460 ms Normal sinus rhythm Normal ECG When compared with ECG of 16-OCT-2023 01:02, Vent. rate has decreased BY [address] no longer depressed in Anterolateral leads Confirmed by Jose Luis Jones ([id number] on 10/17/2023 12:18:50 PM Referred By: REFERRED SELF Confirmed By:Wilfrid Jones
== END 2023-10-17 13:15 | disposition home or self-care (01) | DRG 203 ==
LOC: ED 22:38 → INTOOBSV 10-16 03:55 → EDINP 10-16 03:55 → 2N 10-16 04:16